=== PATIENT | male | born 1975 | race Caucasian/White ===

== ENCOUNTER 2023-11-20 10:28 | Emergency (ER) | payer OTHER ==
[2023-11-20] MEDS ORDERED: MAGNESIUM SULFATE 1 gm IVPB 1 GM/100 ML BAG IV ONE (10:58)
[2023-11-20] MEDS ORDERED: ONDANSETRON 4 MG/2 ML VIAL ONE (10:58)
[2023-11-20] MEDS ORDERED: TAMSULOSIN 0.4 MG SR CAP ONE (10:58)
[2023-11-20] MEDS ORDERED: MORPHINE 4 MG/ML SYR ONE (10:58)
[2023-11-20 11:30] LABS: Absolute Basophils 0.1 K/uL (0-0.5); Absolute Eosinophils 0.4 K/uL (0-0.5); Absolute Monocytes 0.4 K/uL (0.1-1.3); Absolute Neutrophil 4.3 K/uL (1.8-8.0); Basophils % 0.9 % (0-1.3); Eosinophils % 5.2 % (0-4.4); Hematocrit 47.5 % (39.6-49.0); Lymphocytes % 28.5 % (15.3-44.8); MCH 26.8 pg (27.0-35.0); MCHC 31.6 g/dL (32.0-36.0); MCV 84.6 fL (80-100); Monocytes % 5.1 % (3.3-12.3); Neutrophils % 60.3 % (41.7-73.7); Platelets 281 thou/uL (152-406); RBC Red Blood Cell Count 5.61 M/uL (4.33-5.43); Red Cell Distribution Width 14.4 % (12.1-15.2)
--- NOTE | 2023-11-20 11:42 | RAD REPORT ---
Stone Protocol EXAMINATION: CT ABDOMEN AND PELVIS WITHOUT CONTRAST CLINICAL INDICATION: Right flank pain TECHNIQUE: CT abdomen and pelvis was performed, without IV contrast, as per department protocol. Axia l, sagittal and coronal reconstructions were obtained. One or more of the following dose reduction techniques were used: Automated exposure control, adjustment of the mA and kV according to the patien t size, and iterative reconstruction. Unless otherwise specified, incidental findings do not require dedicated imaging follow-up. COMPARISON: No prior exam. FINDINGS: The lack of intravenous contrast limits the sensitivity of this exam for evaluation of solid visceral organs, vascular structures, and bowel Renal calculus not seen. No ureteral calculus. A bladder calculus is not noted. No hydronephrosis Liver, spleen, pancreas and adrenals grossly normal. Normal appendix. No evidence of diverticulitis. Small bilateral hernias Small umbilical hernia IMPRESSION: Negative for genitourinary calculus
[2023-11-20 11:46] LABS: Albumin 3.6 g/dL (3.4-5.0); Albumin/Globulin Ratio 0.9 (1.1-1.8); Anion Gap 7.8 mEq/L (5.0-15.0); Bilirubin Total 0.5 mg/dL (0.2-1.0); Globulin 3.8 g/dL (2.3-3.5); Potassium 3.8 mEq/L (3.5-5.1); Protein, Total 7.4 g/dL (6.4-8.2)
[2023-11-20 13:06] LABS: Specific Gravity 1.026 (1.005-1.030); Sqamous Epithelial None Seen /HPF (None Seen); Urine Bacteria None Seen /HPF (<20); Urine Bilirubin NEGATIVE (Negative); Urine Blood Negative (Negative); Urine Clarity Clear (Clear); Urine Color Light-Yellow (Yellow); Urine Culture Reflex Order NOT NEEDED; Urine Glucose NEGATIVE (Negative); Urine Ketones NEGATIVE (Negative); Urine Microscopic Reflex YN ORDER UMIC; Urine Mucus Slight /HPF (None Seen); Urine Nitrite NEGATIVE (Negative); Urine Protein TRACE (Negative); Urine RBC <5 /HPF (None Seen); Urine Urobilinogen Normal (Normal); Urine WBC <5 /HPF (<5)
--- NOTE | 2023-11-20 13:13 | ER ---
Nurse's Notes [facility] Name: Jasen Monsalve Age: 48 yrs Sex: Male : 1975 Arrival Date: 11/20/2023 Time: 10:28 Bed 18 Private MD: Diagnosis: Abdominal pain, unspecified Presentation: 11/19 10:35 Chief complaint: Patient states: "I'm having pain on my right flank, I've had kidney rs5 stones before and I think I may have another one". 10:35 Coronavirus screen: At this time, the client does not indicate any symptoms associated rs5 with coronavirus-19. Ebola Screen: No symptoms or risks identified at this time. Initial Sepsis Screen: Does the patient meet any 2 criteria? No. Patient's initial sepsis screen is negative. Does the patient have a suspected source of infection? No. Patient's initial sepsis screen is negative. Risk Assessment: Do you want to hurt yourself or someone else? Patient reports no desire to harm self or others. Onset of symptoms was November 20, 2023. 10:35 Method Of Arrival: Ambulatory rs5 10:35 Acuity: GHULAM 3 rs5 Triage Assessment: 10:35 General: Appears in no apparent distress. uncomfortable, Behavior is calm, cooperative. rs5 Historical: - Allergies: 10:44 No Known Allergies; rs5 - PMHx: 10:44 None; rs5 - PSHx: 10:44 None; rs5 - Immunization history:: Adult Immunizations up to date. - Infectious Disease History:: Denies. - Social history:: Smoking status: Patient denies any tobacco usage or history of. - Family history:: not pertinent. - Hospitalizations: : No recent hospitalization is reported. Screenin:35 [facility] ED Fall Risk Assessment (Adult) History of falling in the last 3 months, rs5 including since admission No falls in past 3 months (0 pts) Confusion or Disorientation No (0 pts) Intoxicated or Sedated No (0 pts) Impaired Gait No (0 pts) Mobility Assist Device Used No (0 pt) Altered Elimination No (0 pt) Score/Fall Risk Level 0 - 2 = Low Risk Oriented to surroundings, Maintained a safe environment. 10:35 Abuse screen: Denies threats or abuse. Nutritional screening: No deficits noted. rs5 Tuberculosis screening: No symptoms or risk factors identified. Assessment: 10:35 General: Appears in no apparent distress. uncomfortable, Behavior is calm, cooperative. rs5 Pain: Complains of pain in right mid back Pain currently is 8 out of 10 on a pain scale. Quality of pain is described as aching, Is continuous. Neuro: Level of Consciousness is awake, alert, obeys commands, Oriented to person, place, time, situation. Cardiovascular: Patient's skin is warm and dry. Respiratory: Airway is patent Respiratory effort is even, unlabored, Respiratory pattern is regular, symmetrical. GI: Abdomen is round non-distended, Abd is soft and non tender X 4 quads. : No signs and/or symptoms were reported regarding the genitourinary system. EENT: No signs and/or symptoms were reported regarding the EENT system. Derm: Skin is intact, Skin is pink, warm \\T\\ dry. Musculoskeletal: Range of motion: intact in all extremities. 11:41 Reassessment: Patient and/or family updated on plan of care and expected duration. Pain rs5 level reassessed. Patient is alert, oriented x 3, equal unlabored respirations, skin warm/dry/pink. Patient denies pain at this time. Patient states feeling better. Patient states symptoms have improved. 13:01 Reassessment: No changes from previously documented assessment. rs5 13:35 Reassessment: No changes from previously documented assessment. rs5 Vital Signs: 10:35 BP 137 / 74; Pulse 65; Resp 17; Temp 98(O); Pulse Ox 97% ; rs5 11:01 BP 128 / 72; Pulse 71; Resp 17; Pulse Ox 99% on R/A; rs5 13:33 BP 133 / 70; Pulse 66; Resp 17; Pulse Ox 99% on R/A; rs5 ED Course: 10:33 Patient arrived in ED. ra3 10:33 Timothy Ramires MD is Attending Physician. rn 10:34 Arm band placed on Patient placed in an exam room, on a stretcher. ll1 10:35 Jose Ramon Saenz, GUEVARA is Primary Nurse. rs5 10:35 Patient has correct armband on for positive identification. Placed in gown. Bed in low rs5 position. Call light in reach. Side rails up X2. 10:35 No provider procedures requiring assistance completed. rs5 10:44 Triage completed. rs5 11:04 CT Stone Protocol In Process Unspecified. EDMS 11:25 CBC with Diff Sent. cc6 11:25 CMP Sent. cc6 11:25 Lipase Sent. cc6 11:25 Initial lab(s) drawn, by me, sent to lab. Inserted saline lock: 20 gauge in right cc6 antecubital area, using aseptic technique. Blood collected. Flushed with 10 mL NS. 13:44 IV discontinued, intact, bleeding controlled, No redness/swelling at site. Pressure rs5 dressing applied. Administered Medications: 11:00 Drug: Ondansetron IVP 4 mg IVP once; over 2 minutes Route: IVP; Site: right antecubital;rs5 11:20 Follow up: Response: No adverse reaction rs5 11:00 Drug: morphine IVP or IV 4 mg IVP once over 4 mins Route: IVP; Infused Over: 4 mins; rs5 Site: right antecubital; 11:20 Follow up: Response: No adverse reaction; Pain is decreased rs5 11:00 Drug: Magnesium Sulfate IVPB 1 grams IVPB once over 1 hrs Route: IVPB; Infused Over: 1 rs5 hrs; Site: right antecubital; 12:01 Follow up: IV Status: Completed infusion rs5 11:00 Drug: Flomax PO 0.4 mg PO once Route: PO; rs5 12:01 Follow up: Response: No adverse reaction rs5 Medication: 11:05 VIS not applicable for this client. rs5 Outcome: 13:12 Discharge ordered by . rn 13:44 Discharged to home ambulatory, rs5 13:44 Condition: stable rs5 13:44 Discharge instructions given to patient, family, Instructed on discharge instructions, follow up and referral plans. Demonstrated understanding of instructions, follow-up care, 13:45 Patient left the ED. rs5 Signatures: Dispatcher [employer] EDMS Timothy Ramires MD MD rn Lewis, Lynsay, RN RN 1 Jose Ramon Saenz RN RN rs5 Naomi Marcelo 3 Mikayla Lim cc6
--- NOTE | 2023-11-20 13:13 | EDPHYS ---
Physician Documentation [facility] Name: Jasen Monsalve Age: 48 yrs Sex: Male : 1975 Arrival Date: 11/20/2023 Time: 10:28 Bed 18 Private MD: ED Physician Timothy Ramires HPI: 11/19 10:52 This 48 yrs old Male presents to ER via Ambulatory with complaints of Low Back Pain. rn 10:52 The patient presents with pain that is acute. The symptoms are located in the right mid rn back and right low back. The pain radiates to the abdomen. 10:53 Onset: The symptoms/episode began/occurred 5 day(s) ago. Modifying factors: The patient rn symptoms are alleviated by nothing. Associated signs and symptoms: Pertinent positives: abdominal pain, Pertinent negatives: chest pain, fever, hematuria, incontinence, numbness, tingling, urinary retention. Severity of symptoms: At their worst the symptoms were moderate, in the emergency department the symptoms are unchanged. The patient has experienced similar episodes in the past. Patient reports right flank pain that radiates to right groin and testicles. Similar to previous kidney stones in the past. Has required intervention 1 time in the past. No fever or chills. No vomiting or diarrhea. Patient feels like pain is migrating more towards abdomen and groin. No trauma.. Historical: - Allergies: 10:44 No Known Allergies; rs5 - PMHx: 10:44 None; rs5 - PSHx: 10:44 None; rs5 - Immunization history:: Adult Immunizations up to date. - Infectious Disease History:: Denies. - Social history:: Smoking status: Patient denies any tobacco usage or history of. - Family history:: not pertinent. - Hospitalizations: : No recent hospitalization is reported. ROS: 10:53 Constitutional: Negative for fever, chills, and weight loss, Cardiovascular: Negative rn for chest pain, palpitations, and edema, Respiratory: Negative for shortness of breath, cough, wheezing, and pleuritic chest pain, Abdomen/GI: Positive for abdominal pain Back: Positive for right lower back pain : Negative for injury, bleeding, discharge, and swelling, MS/Extremity: Negative for injury and deformity, Neuro: Negative for headache, weakness, numbness, tingling, and seizure, Exam: 10:53 Constitutional: This is a well developed, well nourished patient who is awake, alert, rn and in no acute distress. Cardiovascular: Regular rate and rhythm. No pulse deficits. Respiratory: No increased work of breathing, no retractions or nasal flaring. Abdomen/GI: Soft, nontender, no peritoneal signs or masses MS/ Extremity: Pulses equal, no cyanosis. Neuro: Awake and alert, GCS 15 Vital Signs: 10:35 BP 137 / 74; Pulse 65; Resp 17; Temp 98(O); Pulse Ox 97% ; rs5 11:01 BP 128 / 72; Pulse 71; Resp 17; Pulse Ox 99% on R/A; rs5 13:33 BP 133 / 70; Pulse 66; Resp 17; Pulse Ox 99% on R/A; rs5 MDM: 10:33 Patient medically screened. rn 13:11 Differential diagnosis: UTI, Nephrolithiasis, nonspecific abdominal pain, passed stone. rn Data reviewed: vital signs, nurses notes, lab test result(s), radiologic studies, CT scan, and as a result, I will discharge patient. Counseling: I had a detailed discussion with the patient and/or guardian regarding the historical points, exam findings, and any diagnostic results supporting the discharge/admit diagnosis, lab results, radiology results, the need for outpatient follow up, to return to the emergency department if symptoms worsen or persist or if there are any questions or concerns that arise at home. Special discussion: Based on the patient's Hx, exam, and Dx evaluation, there is no indication for emergent surgery or inpatient Tx. It is understood by the patient/guardian that if the Sx's persist or worsen they need to return immediately for re-evaluation. I discussed with the patient/guardian in detail that at this point there is no indication for admission to the hospital. It is understood, however, that if the symptoms persist or worsen the patient needs to return immediately for re-evaluation. ED course: No acute findings and imaging or workup. Negative for UTI. No stone visualized in urinary tract, possibly passed to his states worse of pain was the last night and improved today. Will discharge home with return precautions.. 11/19 10:45 Order name: CBC with Diff; Complete Time: 11:43 rn 11/19 10:45 Order name: CMP; Complete Time: 12:30 rn 11/19 10:45 Order name: Lipase; Complete Time: 12:30 rn 11/19 10:45 Order name: Urinalysis w/ reflexes; Complete Time: 13:11 rn 11/19 10:45 Order name: CT Stone Protocol; Complete Time: 11:43 rn 11/19 10:45 Order name: IV Saline Lock; Complete Time: 11:24 rn 11/19 10:45 Order name: Labs collected and sent; Complete Time: 11:25 rn Administered Medications: 11:00 Drug: Ondansetron IVP 4 mg IVP once; over 2 minutes Route: IVP; Site: right antecubital;rs5 11:20 Follow up: Response: No adverse reaction rs5 11:00 Drug: morphine IVP or IV 4 mg IVP once over 4 mins Route: IVP; Infused Over: 4 mins; rs5 Site: right antecubital; 11:20 Follow up: Response: No adverse reaction; Pain is decreased rs5 11:00 Drug: Magnesium Sulfate IVPB 1 grams IVPB once over 1 hrs Route: IVPB; Infused Over: 1 rs5 hrs; Site: right antecubital; 12:01 Follow up: IV Status: Completed infusion rs5 11:00 Drug: Flomax PO 0.4 mg PO once Route: PO; rs5 12:01 Follow up: Response: No adverse reaction rs5 Disposition Summary: 11/20/23 13:12 Discharge Ordered Notes: Location: Home rn Problem: new rn Symptoms: have improved rn Condition: Stable rn Diagnosis - Abdominal pain, unspecified rn Followup: rn - With: Private Physician - When: As needed - Reason: Recheck today's complaints, Re-evaluation by your physician Discharge Instructions: - Discharge Summary Sheet rn - Abdominal Pain, Adult rn - Pain Without a Known Cause rn Forms: - Medication Reconciliation Form rn - Antibiotic yarn examiner skeins - Prescription Opioid Use rn - Patient Portal Instructions rn - Leadership Thank You Letter rn Signatures: Dispatcher [employer] Timothy Russell MD MD rn Sotelo, Ricky, RN RN rs5
[2023-11-20 14:34] VITALS: BP 137/74; TEMP 98; O2SAT 97
== END 2023-11-20 13:45 | disposition home or self-care (01) ==
LOC: ER 10:28
DX: R10.31 Right lower quadrant pain (principal); M54.50 Low back pain, unspecified
CPT/HCPCS: 85025; 81001; 36415; 83690; 80053; 76377; 74176; J3475; J2405

== ENCOUNTER 2024-06-17 07:46 | Day surgery (SDC) | payer OTHER ==
[2024-06-14 14:35] LABS: Anion Gap 4.2 mEq/L (5.0-15.0); Potassium 4.2 mEq/L (3.5-5.1)
--- NOTE | 2024-06-14 14:39 | RAD REPORT ---
EXAMINATION: TWO VIEW CHEST XR CLINICAL INDICATION: pre op for day surgery TECHNIQUE: 2 views of the chest was performed. COMPARISON: No prior exam. FINDINGS: The lungs are well inflated and clear. The heart is mildly enlarged in size. No displaced fractures e vident.
[2024-06-14 14:41] LABS: Absolute Basophils 0.1 K/uL (0-0.5); Absolute Eosinophils 0.3 K/uL (0-0.5); Absolute Monocytes 0.5 K/uL (0.1-1.3); Absolute Neutrophil 5.7 K/uL (1.8-8.0); Basophils % 1.5 % (0-1.3); Hematocrit 45.6 % (39.6-49.0); Hemoglobin 15.1 g/dL (13.6-17.9); Lymphocytes % 31.1 % (15.3-44.8); MCH 27.3 pg (27.0-35.0); MCHC 33.2 g/dL (32.0-36.0); MCV 82.3 fL (80-100); MPV 7.9 fL (7.6-11.3); Monocytes % 5.5 % (3.3-12.3); Neutrophils % 58.9 % (41.7-73.7); Nucleated Red Blood Cells % 0.1 % (0-0); Platelets 262 thou/uL (152-406); RBC Red Blood Cell Count 5.54 M/uL (4.33-5.43); Red Cell Distribution Width 14.2 % (12.1-15.2)
[2024-06-17] MEDS: Ringers Lactate 1,000 ML IV ONE (08:45)
[2024-06-17] MEDS ORDERED: ONDANSETRON 4 MG/2 ML VIAL ONE (09:32)
[2024-06-17] MEDS ORDERED: LIDOCAINE 2% MPF 5 ML VIAL ONE (09:32)
[2024-06-17] MEDS ORDERED: FENTANYL CITR 100 MCG/2 ML ONE ×2 (09:33→10:30)
[2024-06-17] MEDS ORDERED: MIDAZOLAM HCL 2 MG/2 ML INJ ONE (09:33)
[2024-06-17] MEDS ORDERED: ROCURONIUM 50 MG/5 ML VIAL IV ONE (09:33)
[2024-06-17] MEDS ORDERED: propofoL 200 MG/20 ML VIAL IV ONE (09:33)
[2024-06-17] MEDS ORDERED: SUGAMMADEX SODIUM 200 MG/2 ML VIAL IV ONE (09:35)
[2024-06-17] MEDS ORDERED: dexAMETHasone 10 MG/ML VIAL ONE (10:18)
[2024-06-17] MEDS ORDERED: EPHEDRINE SULF 50 MG/ML VIAL ONE (10:21)
[2024-06-17] MEDS ORDERED: GLYCOPYRROLATE 0.2 MG/ML SYR ONE (10:30)
[2024-06-17] MEDS: CEFAZOLIN SODIUM 1 GM/VIAL ONE (10:33)
[2024-06-17] MEDS ORDERED: Mastisol Adhesive Liq ONE (10:38)
[2024-06-17] MEDS ORDERED: KETOROLAC 30 MG/ML INJ ONE (10:43)
--- NOTE | 2024-06-17 10:56 | EKG ---
Test Date: 2024-06-14 Test Time: 14:12:49 Lift Truck Mechanic: RADHA MEASUREMENT RESULTS: Intervals: Rate: 59 CO: 144 QRSD: 84 QT: 402 QTc: 397 [place]: P: 73 CO: 144 QRS: 26 T: 54 INTERPRETIVE STATEMENTS: Sinus bradycardia Otherwise normal ECG No previous ECG available for comparison Electronically Signed On 06-17-24 10:50:39 CDT by Eliseo Tena
--- NOTE | 2024-06-17 11:03 | P.BOP ---
Preoperative diagnosis: Bilateral inguinal and umbilical tender hernias Postoperative diagnosis: same Primary procedure: 1.Laparoscopic repair tender reducible Right inguinal hernia with mesh Secondary procedure: 2.Laparoscopic repair tender reducible Left inguinal hernia with mesh Other procedure(s): 3. Open repair of incarcerated tender umbilical hernia 2.5cm Estimated blood loss: <10cc Specimen: Umbilical sac Findings: as above Anesthesia: General Complications: None Implants: 3D mesh Transferred to: Recovery Room Condition: Good
[2024-06-17] MEDS: FENTANYL CITR 100 MCG/2 ML ONE (11:45)
[2024-06-17] MEDS: CODEINE 30MG/APAP 300MG TAB ONE (12:24)
[2024-06-17] MEDS: TAMSULOSIN 0.4 MG SR CAP ONE (12:24)
[2024-06-17 14:24] VITALS: BP 114/64; TEMP 97.6; O2SAT 100
--- NOTE | 2024-06-17 16:11 | DS ---
Date of Discharge: 06/17/2024 Diagnoses: Bilateral inguinal hernias and umbilical hernia. Procedures: Laparoscopic repair of bilateral inguinal hernia with mesh and repair of umbilical herni a 2.5 cm. Condition: Stable. Disposition: Home. Activity: As tolerated. No heavy lifting. Discharge Instructions: Follow up in my office in 1 week. Call for appointment at [phone]. Keep a jennifer dry for 48 hours, then may shower. Cold compress to the bilateral inguinal region for 24 hours. CHRISTOPHER/YOKASTA Voice ID: [id number] Report ID: [id number]
--- NOTE | 2024-06-17 16:11 | OP ---
Date of Procedure: 06/17/2024 Surgeon: Jeff Siddiqi MD Preoperative Diagnoses: Tender reducible right inguinal hernia, tender reducible left inguinal herni a, and tender incarcerated umbilical hernia. Postoperative Diagnoses: Tender reducible right inguinal hernia, tender reducible left inguinal ken ia, and tender incarcerated umbilical hernia. Procedures: 1. Laparoscopic repair of tender reducible right inguinal hernia with mesh. 2. Laparoscopic repair of tender reducible left inguinal hernia with mesh. 3. Open repair of incarcerated tender umbilical hernia. Estimated Blood Loss: Less than 10 cc. Specimen: Umbilical sac. Findings: The patient has 3 hernias. Anesthesia: General plus local. Complications: None. Implant: A 3D mesh on the right and left inguinal region. Indications: This is a case of a 49-year-old patient who came to us with above diagnoses. Fully exp lained the benefits, alternatives, and risks of laparoscopic, possible open repair of bilateral ingui nal hernias with possible mesh and also repair of incarcerated umbilical hernia which is tender. The umbilical hernia is about 2.5 cm. With benefits, alternatives, and risks fully explained, which inc lude, but not limited to, infection, bleeding, damage to adjacent structures, anesthesia complication , recurrence, [place], and even . He also understands this may not relieve any symptoms. He might n eed more than one surgical intervention. He also understands the importance of losing weight. No he alayna lifting. He was also explained we may be using mesh in the inguinal region with pros and cons of mesh placement discussed with the patient and all the questions answered to his satisfaction. He si gned a consent. Description Of Procedure: The patient was brought to the operating room, placed in supine position. Anesthesia was given without complication. Abdomen and inguinal region were prepped and draped in s terile fashion. Local anesthesia was applied followed by sharp incision of the skin in the infraumbi lical region. Incision was carried down until we found the anterior rectus sheath. We opened on the right side. The muscle was retracted laterally to expose posterior rectus sheath. The extraperiton eal space was developed with the help of blunt dissection and a balloon tipped trocar was placed in t hat area directed to the pubis symphysis, and laparoscope was placed in the trocar and the balloon wa s inflated under direct visualization to create the extraperitoneal space. After that, the balloon w as deflated and removed. We insufflated the area, put the cameras once again in and then under direc t visualization, we put a 5 mm trocar just about the pubis symphysis and another one correction between the first and the second one. The preperitoneal space was further developed by exposing the inferior epigastric vessels. We did the right side first. The patient was placed in Trendelenburg position already. We kept the epigastric vessels anterior to the dissection. The Jean ligament was dissect ed laterally to the junction with the iliac veins and dissection continued inferiorly to the iliopubi c tract avoiding damage to the femoral branch of the genitofemoral nerve and lateral femoral cutaneou s nerve. The cord structures were skeletonized. The hernia was identified, mobilized from the cord, and reduced into the peritoneal cavity. Once we finished with that side, we moved to the left side. Once again, kept the epigastric vessels anteriorly, Jean's ligament dissected laterally to the ju nction with the iliac veins and the dissection continued inferiorly to the iliopubic tract, once agai n avoiding damage to the femoral branch of the genitofemoral nerve and lateral femoral cutaneous nerv e. Cord structures were skeletonized. The hernia sac was also identified, reduced back into the per itoneal cavity after the cord structures were skeletonized. After that, we proceeded then to continu e on the left side. So we put a 3D mesh and passed it through the Calvin trocar. The mesh was place d along the working space to cover direct/indirect spaces. The mesh was secured in place with SorbaF ix lateral and superior to the iliopubic tract and inferior and medial to the Jean ligament. After that, we moved to the right side, another mesh was placed inside, was placed on the right side to co elo direct/indirect space. Once again, the mesh was secured in place with SorbaFix lateral and super ior to the iliopubic tract and inferior and medial to the Jean ligament. After ensuring hemostasis , we proceeded then to deflate the area and allowed the air to escape while we were holding the mesh in place straight. The trocars were removed. The anterior rectus sheath was closed with #1 Vicryl. After that, we went to the umbilical region. We extended incision to the umbilical area and the her cedric sac was identified, opened, removed, and then the hernia defect after found to be viable and stro ng, we proceeded to close that with a Vicryl #1 multiple times. Sponge counts and instrument counts correct. The subcutaneous tissue was closed with 3-0 chromic and then skin in subcuticular fashion w ith 3-0 chromic and Steri-Strips on top. Sponge counts and instrument counts correct. Patient sent to Recovery in stable condition. CHRISTOPHER/YOKASTA Voice ID: [id number] Report ID: [id number]
== END 2024-06-17 13:45 | disposition home or self-care (01) ==
LOC: OR 07:46
PROVIDERS: ATTEND Surgery
PROC: 0YUA4JZ Supplement Bilateral Inguinal Region with Synthetic Substitute, Percutaneous Endoscopic Approach (ICD-10-PCS; principal; 2024-06-17 10:06)
PROC: 0WQF0ZZ Repair Abdominal Wall, Open Approach (ICD-10-PCS; 2024-06-17 10:06)
DX: K40.20 Bilateral inguinal hernia, without obstruction or gangrene, not specified as recurrent (principal); K42.0 Umbilical hernia with obstruction, without gangrene; G47.33 Obstructive sleep apnea (adult) (pediatric)
CPT/HCPCS: 93005; 85025; 80048; 36415; 88302; 71046; 49650; 49592; J2704; J2003; J2250; J3010 ×3; J1100; J2405; J7120; J0690; C1781